=== PATIENT | male | born 2000 | race Caucasian/White ===

== ENCOUNTER 2021-10-27 23:02 | Emergency (ER) | payer OTHER ==
[2021-10-27 23:11] VITALS: BP 144/86; PULSE 86; TEMP 98; BMI 23.5
== END 2021-10-28 00:01 | disposition home or self-care (01) ==
LOC: JERFT 23:02 → JER 23:02
DX: L98.8 Other specified disorders of the skin and subcutaneous tissue (principal)
CPT/HCPCS: 99282-25